=== PATIENT | female | born 1965 | race Caucasian/White ===

== ENCOUNTER → 2016-08-01 | Outpatient (CLI) | payer BC, OTHER ==
[~2016-08-01] MED LIST: DIVA125T2 PO; SERT50TA PO
[2016-08-01 14:17] LABS: BLOOD UREA NITROGEN 12 mg/dL (7-18)
== END | disposition home or self-care (01) ==
LOC: STAR 13:19
PROVIDERS: ATTEND Surgery
DX: Z01.818 Encounter for other preprocedural examination (principal); R22.32 Localized swelling, mass and lump, left upper limb
CPT/HCPCS: 36415; 80048

== ENCOUNTER 2016-09-18 05:40 | Day surgery (SDC) | payer OTHER ==
[~2016-09-18] VITALS: Ht 165.1 cm; Wt 57.0 kg
[2016-09-18 06:26] VITALS: BP 95/62
[2016-09-18] MEDS ORDERED: FENTANYL PF 250 MCG/5ML ONE (06:28)
[2016-09-18] MEDS ORDERED: MIDAZOLAM 1 MG/ML, 2ML ONE (06:28)
[2016-09-18] MEDS ORDERED: LIDOCAINE 1%, 2ML SQ PRN (06:30)
[2016-09-18] MEDS ORDERED: LACTATED RINGERS 1,000 ML IV SCH (06:30)
[2016-09-18] MEDS ORDERED: LIDOCAINE 1%, 2ML ONE (06:31)
[2016-09-18] MEDS ORDERED: BUPIVACAINE/PF-EPI 0.5% 1:200K ONE (06:36)
[2016-09-18] MEDS ORDERED: ONDANSETRON 2MG/ML, 2ML ONE (06:58)
[2016-09-18] MEDS ORDERED: PROPOFOL 10 MG/ML, 20ML ONE (06:58)
[2016-09-18] MEDS ORDERED: CEFAZOLIN 1,000 MG ONE (06:58)
[2016-09-18] MEDS ORDERED: HYDROcodone/APAP 7.5-325MG/15ML UDC PO PRN (07:00)
[2016-09-18] MEDS ORDERED: PROMETHAZINE 25 MG/ML, 1ML IV PRN (07:00)
[2016-09-18] MEDS ORDERED: ACETAMINOPHEN 325 MG TABLET PO PRN (07:00)
[2016-09-18] MEDS ORDERED: ONDANSETRON 2MG/ML, 2ML IVPush PRN (07:00)
[2016-09-18] MEDS ORDERED: FENTANYL PF 100 MCG/2ML IV PRN (07:00)
[2016-09-18] MEDS ORDERED: HYDROmorphone 1 MG/ML, 1ML IV PRN (07:00)
[2016-09-18] MEDS ORDERED: MEPERIDINE/PF 25MG/0.5ML IVPush PRN (07:00)
[2016-09-18] MEDS ORDERED: OXYcodone 5 MG/5 ML ORAL.SOL UDC PO PRN (07:00)
== END 2016-09-18 09:20 | disposition home or self-care (01) ==
LOC: OUT 05:40
PROVIDERS: ATTEND Surgery
DX: D17.22 Benign lipomatous neoplasm of skin and subcutaneous tissue of left arm (principal); Z88.0 Allergy status to penicillin; Z90.710 Acquired absence of both cervix and uterus; Z72.89 Other problems related to lifestyle; Z82.3 Family history of stroke; Z82.49 Family history of ischemic heart disease and other diseases of the circulatory system
CPT/HCPCS: 25075; 88305; J0690; J2250; J2405; J2704; J3010; J3490; J7120

== ENCOUNTER → 2016-10-01 | Outpatient (CLI) | payer OTHER | END | disposition home or self-care (01) | LOC: CFH 07:44 | PROVIDERS: ATTEND Physician Assistant | DX: R10.13 Epigastric pain (principal); R14.0 Abdominal distension (gaseous); Z90.49 Acquired absence of other specified parts of digestive tract | CPT/HCPCS: 76700 ==